=== PATIENT | male | born 1985 | race Native Hawaiian/Other Pacific Islander ===

== ENCOUNTER 2017-01-15 21:48 | Emergency (ER) | payer OTHER ==
[~2017-01-15] VITALS: Ht 180.3 cm; Wt 65.0 kg
[~2017-01-15 21:48] MED LIST: HYDR-3533 PO
[2017-01-15 21:50] VITALS: BP 126/75; PULSE 80; RESP 18; TEMP 98.2; O2SAT 100
--- NOTE | 2017-01-15 22:10 | PD ---
HPI Chief Complaint: Laceration/Skin Injury Time Seen by Provider: 22:10 Travel History International Travel<30 days: No Contact w/Intl Traveler<30days: No Traveled to known affect area: No History of Present Illness HPI 31-year-old male from [place], presents to the emergency department for evaluation of hemorrhoid pain. Patient states he has had hemorrhoids for his long as he can remember and they are very painful. He states that he is supposed to be flying home to [place] and having surgery on them there but the pain is too bad and he states that he cannot sit on a flight. Rates the pain a 10 out of 10, constant. Patient denies any straining with bowel movements. States that he has had no rectal bleeding. Denies any anal intercourse or foreign body insertion. Denies a fever chills. No abdominal pain. No other symptoms to report. PFSH Past Medical History Medical History: Denies Significant Hx Social History Alcohol Use: Yes Tobacco Use: No Allergies-Medications (Allergen,Severity, Reaction): Coded Allergies: No Known Allergies (Unverified , 12/02/14) Reported Meds & Prescriptions Reported Meds & Active Scripts Active Anucort-Hc Supp (Hydrocortisone Acetate Supp) 25 Mg Supp 25 Mg RECTAL BID Anusol-Hc Rectal (Hydrocortisone Rectal) 2.5% Cream 1 Applic RECTAL Q4-6H PRN Lortab 5 mg/325 mg (Hydrocodone/Acetaminophen 5 mg/325 mg) 1 Tab 1-2 Tab PO Q6H PRN Review of Systems Except as stated in HPI: all other systems reviewed are Neg Physical Exam Narrative GENERAL: Well-nourished, well-developed patient in no acute distress SKIN: Focused skin assessment warm/dry. HEAD: Normocephalic. EYES: No scleral icterus. No injection or drainage. NECK: Supple, trachea midline. No JVD or lymphadenopathy. CARDIOVASCULAR: Regular rate and rhythm without murmurs, gallops, or rubs. RESPIRATORY: Breath sounds equal bilaterally. No accessory muscle use. GASTROINTESTINAL: Abdomen soft, non-tender, nondistended. RECTAL EXAM: Significant protrusion of internal hemorrhoid, partially able to insert back into rectum, internal rectal exam is deferred. MUSCULOSKELETAL: No cyanosis, or edema. BACK: Nontender without obvious deformity. No CVA tenderness. Data Data Last Documented VS Vital Signs Date Time Temp Pulse Resp B/P Pulse Ox O2 Delivery O2 Flow Rate FiO2 01/15/17 21:50 98.2 80 18 126/75 100 Room Air MDM Medical Decision Making Medical Screen Exam Complete: Yes Emergency Medical Condition: Yes Medical Record Reviewed: Yes Differential Diagnosis Hemorrhoid versus neoplasm versus prolapsed rectum Narrative Course 31-year-old male presents to the emergency department for evaluation of painful hemorrhoids that he has had for several years area patient does have hemorrhoids noted. Remaining exam is benign. He is encouraged to follow through with his appointment for surgical repair. He is provided prescription for topical ointment as well as the positive for a period he agrees to return immediately with any acute worsening of symptoms. Diagnosis Primary Impression: Grade III hemorrhoids Referrals: Colon Rectal Specialist Primary Care Physician Patient Instructions: General Instructions, Hemorrhoids (ED) Additional Instructions: Avoid heavy lifting and straining Take a stool softener to ensure soft bowel movements Maintain adequate oral hydration Follow-up with your colorectal surgeon Avoid any foreign body in your rectum Return immediately with any acute worsening of symptoms Med/Other Pt SpecificInfo: Prescription(s) given Scripts Hydrocortisone Acetate Supp (Anucort-Hc Supp)25 Mg Supp25 Mg RECTAL BID #12 SUPP Ref 0 Prov:Dana Harding 01/15/17 Hydrocortisone Rectal (Anusol-Hc Rectal)2.5% Cream1 Applic RECTAL Q4-6H PRN ( ITCHING/INFLAMMATION) #30 GM Ref 0 Prov:Dana Harding 01/15/17 Disposition: 01 DISCHARGE HOME Condition: Stable Dana Harding January 15, 2017 22:10
[2017-01-15] MEDS ORDERED: ANUC25SU RECTAL (22:19)
[2017-01-15] MEDS ORDERED: HYDR2.5%T RECTAL (22:19)
== END 2017-01-15 22:46 | disposition home or self-care (01) ==
LOC: NEPK 21:48
DX: K64.2 Third degree hemorrhoids (principal)
CPT/HCPCS: 99282

== ENCOUNTER → 2017-01-21 | Day surgery (SDC) | payer OTHER | END | disposition home or self-care (01) | LOC: HSDC 08:53 | PROVIDERS: ATTEND Colon & Rectal Surgery | DX: K62.89 Other specified diseases of anus and rectum (principal); Z53.09 Procedure and treatment not carried out because of other contraindication | CPT/HCPCS: 99211; G0463 ==

== ENCOUNTER → 2017-02-04 | Day surgery (SDC) | payer OTHER ==
[~2017-02-04] VITALS: Ht 188 cm; Wt 64.3 kg
[~2017-02-04] MED LIST changes: +*ONDANSETRON 4 MG VIAL PERIprocedural Use ONLY ONE; +*morphine SULFATE 8 MG/ML PERIprocedure ONLY ONE; +ACETAMINOPHEN 1000 MG/100 ML VIAL IV ONE; +BUPIVACAINE/EPINEPHRINE 0.25% PF 10 ML VIAL INFIL ONE; +CHLORHEXIDINE GLUCONATE 2 % 1 PACK (2 CLOTHS) TOPICAL PRN; +DEXAMETHASONE SOD PHOS 4 MG/ML VIAL ONE; +DICLOFENAC SODIUM 37.5 MG/ML VIAL IV PUSH ONE; +DO NOT ADM ANY ANTICOAGULANT DRUGS PRN; +FAMOTIDINE 20 MG/2 ML VIAL ONE; -HYDR-3533 PO; +INSULIN HUMAN REGULAR 1,000 UNITS/10 ML VIAL SQ PRN; +LACTATED RINGER'S 1000 ML IV PRN; +LIDOCAINE 1%/EPINEPHrine 1:100,000 SOLN 20 ML VIAL ONE; +METOPROLOL TARTRATE 25 MG TAB PO PRN; +MIDAZOLAM HCL 2 MG/2 ML VIAL ONE; +MORPHINE SULFATE 4 MG/ML INJ IV PRN; +NEOSTIGMINE 3 MG/3 ML SYR IV ONE; +ONDANSETRON HCL 4 MG/2 ML VIAL IV PUSH ONE; +ONDANSETRON HCL 4 MG/2 ML VIAL IV PUSH PRN; +POVIDONE IODINE 5% (ANTISEPSIS KIT) 4 APPLICATIONS EACH NARE PRN; +PROPOFOL 200 MG/20 ML AMP IV ONE; +SILVER SULFADIAZINE/LIDOCAINE CREAM 60 GM JAR RECTAL ONE; +SODIUM CHLORID 0.9% 500 ML IV PRN; +ePHEDrine/NS 25 MG/5 ML SYR IV ONE; +oxyCODONE/ACETAMINOPHEN 10 MG/325 MG TAB PO PRN
--- NOTE | 2017-02-04 10:20 | PD.HP.UP ---
H&P Update Note The Pre-Admit History and Physical Examination regarding the above named patient was reviewed (including, but not limited to, vital signs, heart, lungs, co-morbid conditions), and upon re-examination it is noted that: the patient's condition has not significantly changed since the last examination. Mike Vick MD February 04, 2017 10:20
[2017-02-04 12:05] VITALS: BP 109/71; PULSE 64; RESP 16; TEMP 98.8; O2SAT 100
[2017-02-04 12:33] LABS: AUTOMATED NEUTROPHIL # 2.3 TH/MM3 (1.8-7.7); BASOPHIL % 0.9 % (0.0-2.0); EOSINOPHIL # 0.1 TH/MM3 (0-0.4); EOSINOPHIL % 1.3 % (0.0-4.0); HEMATOCRIT 42.6 % (39.0-51.0); HEMO FLAGS DIFF FINAL; LYMPH % 40.9 % (9.0-44.0); LYMPHOCYTE # 1.9 TH/MM3 (1.0-4.8); MEAN CELL VOLUME 87.1 FL (80.0-100.0); MEAN CORPUSCULAR HEMOGLOBIN 28.5 PG (27.0-34.0); MEAN CORPUSCULAR HGB CONC 32.7 % (32.0-36.0); MONO % 7.1 % (0.0-8.0); NEUT % 49.8 % (16.0-70.0); PLATELET COUNT 138 TH/MM3 (150-450); RED BLOOD COUNT 4.89 MIL/MM3 (4.50-5.90); RED CELL DISTRIBUTION WIDTH 13.4 % (11.6-17.2); WHITE BLOOD COUNT 4.7 TH/MM3 (4.0-11.0)
[2017-02-04 16:05] VITALS: BP 121/72; PULSE 65; RESP 16; O2SAT 100
--- NOTE | 2017-02-06 11:59 | MP ---
cc: JAN HOLDEN M.D. DATE OF SURGERY: 02/04/2017 PREOPERATIVE DIAGNOSIS Symptomatic hemorrhoids, rectal pain. PROCEDURE Exam under anesthesia with partial internal sphincterotomy and anorectoplasty. POSTOPERATIVE DIAGNOSIS Posterior midline fissure. Grade III prolapsing hemorrhoids. SURGEON Dr. Holden DETAILS OF PROCEDURE The patient was placed in the supine position. After adequate general anesthesia he was placed in the prone jackknife position. His buttocks were taped apart, prepped with Betadine solution and draped in the usual sterile fashion. Initially local anesthesia was obtained by injection of 1% Xylocaine/0.25% Marcaine with epinephrine. The anal canal was gently dilated and a half-dinero retractor inserted. Examination revealed a fissure in the posterior midline without many inflammatory changes. There were quite large prolapsing chronically inflamed hemorrhoids in the left lateral position and the right lateral position. The rectal vault appeared pretty unremarkable. First the intersphincteric groove was palpated in the left lateral position and a partial internal sphincterotomy performed opening up the anorectal lumen. An elliptical incision was then made over the large hemorrhoidal mass in the left lateral quadrant excising off the internal and external sphincter. The pedicle was narrowed and divided using electrocautery. The mucosal defect and anoderm were then closed using a running chromic catgut suture for hemostasis. Similar dissection was performed in the right lateral quadrant excising the posterior cushion in a similar fashion. The right anterior cushion was quite small and did not require excision. The lumen size was more than adequate after the procedure. Hemostasis was adequate. A small Surgicel dressing was placed in the anal canal. A large Fluff dressing was placed externally. Sponge and needle counts were correct at the end of the procedure. MD KARTHIKEYAN Monroy/ERLINDA /11:20 PM /11:50 AM
== END | disposition home or self-care (01) ==
LOC: HSDC 11:30
PROVIDERS: ATTEND Colon & Rectal Surgery
DX: K64.2 Third degree hemorrhoids (principal); K60.2 Anal fissure, unspecified; Z91.011 Allergy to milk products
CPT/HCPCS: 46260; 85025; 88304; J0131; J1100; J1130; J2250; J2270; J2405; J2710; J3010; J7120